=== PATIENT | female | born 1970 | race Caucasian/White ===

== ENCOUNTER → 2016-09-17 | Outpatient (CLI) | payer BC, MEDICARE ==
--- NOTE | 2016-09-19 11:57 | MM ---
Reason for exam: follow-up at short interval from prior study. Last mammogram was performed 6 years and 6 months ago. History: Family history of breast cancer in aunt at age 55. Cyst aspiration of the right breast, June 04, 2004. Ultrasound-guided cyst aspiration of the right breast, May 30, 2004. Benign ultrasound-guided core biopsy of the right breast, May 30, 2004. Cyst aspiration of the right breast. Core biopsy of the right breast. Physical Findings: Nurse did not find any significant physical abnormalities on exam. MG 3D Diag Mammo W/Cad LT CC and MLO view(s) were taken of the left breast. Prior study comparison: March 12, 2016, mammogram, performed at [facility]. March 15, 2013, mammogram, performed at [facility]. March 28, 2010, bilateral digital screening mammogram. January 26, 2007, CAD bilateral diagnostic mammogram. January 24, 2006, CAD bilateral diagnostic mammogram. The breast tissue is almost entirely fat. No suspicious calcifications are seen. Nodular density in the upper outer left breast persists. These results were verbally communicated with the patient on 09/19/16. ASSESSMENT: Incomplete: need additional imaging evaluation, BI-RAD 0 RECOMMENDATION: Ultrasound of the left breast.
--- NOTE | 2016-09-19 11:59 | USB ---
Reason for exam: additional evaluation requested from abnormal screening. History: Family history of breast cancer in aunt at age 55. Cyst aspiration of the right breast, June 04, 2004. Ultrasound-guided cyst aspiration of the right breast, May 30, 2004. Benign ultrasound-guided core biopsy of the right breast, May 30, 2004. Cyst aspiration of the right breast. Core biopsy of the right breast. US Breast LT Left breast ultrasound includes all four quadrants, the retroareolar region and axilla. Finding demonstrates a 0.4 x 0.4 x 0.3cm oval, hypoechoic lesion at 5 o'clock and multiple normal appearing nodes seen at the axilla. These results were verbally communicated with the patient on 09/19/16. ASSESSMENT: Benign, BI-RAD 2 RECOMMENDATION: Routine screening mammogram of both breasts in 6 months. Back on schedule.
== END | disposition home or self-care (01) ==
LOC: RADMAMWWP 14:08
PROVIDERS: ATTEND Surgery
DX: R92.8 Other abnormal and inconclusive findings on diagnostic imaging of breast (principal)
CPT/HCPCS: 76641; G0206; G0279

== ENCOUNTER → 2017-02-01 | Outpatient (CLI) | payer BC, MEDICARE ==
--- NOTE | 2017-02-01 10:43 | MR ---
EXAMINATION TYPE: MR brain wo con DATE OF EXAM: 02/01/2017 COMPARISON: NONE HISTORY: Chronic Tension Headaches T1-weighted sagittal, T2, FLAIR, and diffusion axial, and T2 coronal coronal views of the brain are s ubmitted. There is no evidence of acute ischemia. The ventricles, basal cisterns, and sulci overlying the conv exities are consistent with the patient's age. There is no mass effect. Craniocervical junction maintained. Sella turcica has a normal appearance. No cerebellopontine angle mass. There is mild generalized degenerative change. There are a few scattered areas of less than 5 mm abno rmal signal the white matter which are nonspecific Changes of chronic sinusitis noted. IMPRESSION: 1. No acute intracranial process. 2. There are a few scattered tiny areas of abnormal signal the white matter which are nonspecific can be seen with migraine headaches, hypertension. Demyelinating process or remote microvascular ischemi a not entirely excluded correlate clinically. 3. Changes of chronic sinusitis.
== END | disposition home or self-care (01) ==
LOC: RADMRIMAIN 09:36
PROVIDERS: ATTEND Psychiatry & Neurology Neurology
DX: G43.909 Migraine, unspecified, not intractable, without status migrainosus (principal); I10 Essential (primary) hypertension; R90.82 White matter disease, unspecified; R90.89 Other abnormal findings on diagnostic imaging of central nervous system
CPT/HCPCS: 70551

== ENCOUNTER → 2017-08-19 | Outpatient (CLI) | payer BC, MEDICARE ==
[2017-08-18 13:59] VITALS: BMI 43.5
--- NOTE | 2017-08-19 12:14 | P.CONS ---
History of Present Illness - Reason for Consult Consult date: 08/19/17 - Chief Complaint Lower back and left leg pain - History of Present Illness This is a 47-year-old female with history of 3 back surgeries started in 2008 with 2 laminectomies and into thousand and she had lumbar fusion. The pain did not improve after the surgeries and goes across her lower back and down her left leg to the foot with occasional numbness and tingling however she does not feel weakness in the lower extremities and she also denies any bowel or bladder dysfunction. This pain occasionally wakes her up at night. She denies any weight loss. The patient failed to respond to a spinal cord stimulator trial previously. She had the interventional pain procedures on her back previously but she failed to respond to them and she had them done about 8 years ago. The patient denies using tobacco or marijuana. She is unemployed. She uses a maximum milligrams twice a day and Ambien 10 mg at night. She has been using Marvell 10 mg 4 times a day and MS Contin 30 mg from time to time but she said she rarely needs to use it. Past Medical History Past Medical History: Fibromyalgia, Hypertension, Osteoarthritis (OA), Pneumonia Additional Past Medical History / Comment(s): chronic back pain, incont of urine ,bronchitis, herniated disc,migraines since age 14,IBS. History of Any Multi-Drug Resistant Organisms: None Reported Past Surgical History: Back Surgery, Section, Cholecystectomy, Hysterectomy, Orthopedic Surgery Additional Past Surgical History / Comment(s): lap band SINCE REMOVED, rt breast lumpectomy,rt foot procedure,left knee scope Past Anesthesia/Blood Transfusion Reactions: No Reported Reaction Additional Past Anesthesia/Blood Transfusion Reaction / Comm: CLAUSTERPHOBIA, VERTIGO Smoking Status: Never smoker - Past Family History Father History Unknown: Yes Mother Family Medical History: Hypertension Additional Family Medical History / Comment(s): MATERNAL GRANDMOTHER HAD DM WELL PTS 3 UNCLES Medications and Allergies Home Medications Medication Instructions Recorded Confirmed Type ALPRAZolam [Xanax] 1 mg PO BID 07/18/15 08/19/17 History HYDROcodone/APAP 10-325MG [[place] 2 tab PO BID 07/18/15 08/19/17 History 10-325] Nebivolol [Bystolic] 5 mg PO DAILY@1500 07/18/15 08/19/17 History PARoxetine HCL [Paxil] 30 mg PO DAILY@1500 07/18/15 08/19/17 History Zolpidem [Ambien] 10 mg PO HS 07/18/15 08/19/17 History Chlorthalidone [Hygroton] 25 mg PO DAILY@1500 02/18/17 08/19/17 History Aspirin 81 mg PO DAILY 08/18/17 08/19/17 History Aspirin/Acetaminophen/Caffeine 1 tab PO DAILY PRN 08/19/17 08/19/17 History [Excedrin Extra Strength Caplet] Morphine Sulfate ER [Ms Contin] 30 mg PO BID PRN 08/19/17 08/19/17 History Allergies Allergy/AdvReac Type Severity Reaction Status Date / Time No Known Allergies Allergy Verified 08/19/17 11:37 Physical Exam - Constitutional General appearance: obese - EENT Eyes: PERRLA - Respiratory Respiratory: bilateral: CTA - Cardiovascular Rhythm: regular - Neurologic Neurologic: CNII-XII intact - Psychiatric Psychiatric: A&O x's 3, appropriate affect, intact judgment & insight Neuro exam of the lower extremities showed normal muscle strength bilaterally and symmetrically and normal deep tendon reflexes. Straight leg raising test negative bilaterally. She has significant tenderness around her back surgery scar. There is no sacroiliac joint tenderness on the right side however there is mild tenderness on the left side. She has decreased range of motion of the lumbar spine with more pain with extension than with flexion. Assessment and Plan Plan: This is a 47-year-old female with what seems to be lumbar postlaminectomy pain syndrome and pain that goes down her left leg. The patient failed to respond to aspirin Harvest trial many years ago and right now she has been taking Marvell and MS Contin from time to time to help control her pain. She failed TO respond to physical therapy previously. The patient will continue using Marvell for her pain is described by her primary care physician and I think we can schedule her to have caudal epidural steroid injection under fluoroscopic guidance with lysis of adhesions to see of them helped her back pain. The patient states that she has pain around her tailbone already but she understands that she will be tender for 3 days after this injection. The patient's questions were answered to her satisfaction and also her mother was in the room and her questions were addressed. I thank you for the consultation
== END | disposition home or self-care (01) ==
LOC: PNWHC3 11:25
PROVIDERS: ATTEND Anesthesiology
DX: M96.1 Postlaminectomy syndrome, not elsewhere classified (principal); I10 Essential (primary) hypertension; M19.90 Unspecified osteoarthritis, unspecified site; M79.7 Fibromyalgia; Z79.891 Long term (current) use of opiate analgesic; Z79.899 Other long term (current) drug therapy; Z79.82 Long term (current) use of aspirin; Z98.890 Other specified postprocedural states
CPT/HCPCS: 99211

== ENCOUNTER 2017-09-09 09:49 | Day surgery (SDC) | payer BC, MEDICARE ==
[2017-09-03 14:41] VITALS: BMI 44.5
[~2017-09-09 09:49] MED LIST: LACTATED RINGERS 1,000 ML IV SCH
[2017-09-09 10:23] VITALS: TEMP 98
[2017-09-09] MEDS ORDERED: LACTATED RINGERS 1,000 ML IV ONE (10:24)
[2017-09-09] MEDS ORDERED: LIDOCAINE 1% 20 ML VIAL (10MG/ML) FOR IV START INTRADERMA ONE (10:24)
--- NOTE | 2017-09-09 11:38 | P.PCN ---
Date of Procedure: 09/09/17 Procedure(s) Performed: PREOPERATIVE DIAGNOSIS: Lumbar post laminectomy syndrome. POSTOPERATIVE DIAGNOSIS: Lumbar post laminectomy syndrome. PROCEDURE: 1. Caudal epidural steroid injection under fluoroscopic guidance. 2. Caudal epidurogra ANESTHESIA: Local with 1% lidocaine; 5ml for subcutaneous infiltrations and IV versed 2 mg ,and fentanyl 100 mcg (to was given 2 mg of Versed and 100 g of fentanyl but we found on the the IV was infiltrated and we did place the IV and we gave another 2 mg of Versed and 100 g of fentanyl intravenously ) EBL: None. PROCEDURE INDICATION: The patient with neuropathic pain radiating distally returns for caudal epidural steroid injection. PROCEDURE DESCRIPTION: The patient was seen and identified in the preoperative area. Risks, benefits, complications, and alternatives were discussed with the patient. The patient agreed to proceed with the procedure and signed the consent. IV was started, and vital signs were stable. Patient was taken to the OR and time out was completed. The patient was placed in the prone position on procedure table and a pillow was placed under the abdomen to reduce lumbar lordosis. The lumbosacral area was prepped and draped in the usual sterile fashion. Critical pause was taken. Vital signs were closely monitored during the procedure. Using lateral fluoroscopy the anterior-posterior plates of the sacrum were identified and the skin and deeper tissues corresponding into sacrococcygeal ligament were anesthetized using approximately 3 mL of 1% lidocaine. Then under fluoroscopy, a 3-1/2-inch 20-gauge Tuohy epidural needle was guided through the sacrococcygeal ligament, and into the epidural space. After negative aspiration , a 2 mL of omnipaque-180 contrast dye was injected with excellent epidurogram. Again after negative aspiration for CSF, blood, and with no paresthesias, Depomedrol 80mg , 2ml of 1% preservative free Lidocaine with 6 ml of preservative free normal saline(total of 10ml)solution was injected with washout of epidurogram. Needle was withdrawn intact. Skin was cleansed, and bandage was applied. COMPLICATIONS: None DISPOSITION / PLANS: The patient was placed in a supine position and transferred to the recovery area in a stable condition for observation and was discharged from the recovery room after meeting discharge criteria. Home discharge instructions given to the patient by the staff. The patient was reexamined prior to discharge. The patient will schedule a follow up in the clinic in 2-4 weeks.
[2017-09-09] MEDS ORDERED: IV FLUID CONTINUATION 1,000 ML IV ONE (11:49)
--- NOTE | 2017-09-09 12:10 | FL ---
EXAMINATION TYPE: FL guided pain mgmt statistic DATE OF EXAM: 09/09/2017 COMPARISON: NONE HISTORY: Back pain TECHNIQUE: Fluoroscopy. FINDINGS/IMPRESSION: Fluoroscopic guidance was provided during procedure performed by Dr. Johns. A total of 3 seconds of fluoroscopic time was utilized during the procedure and 2 spot images was ac quired demonstrating localization of the sacrum.
[2017-09-09] MEDS ORDERED: fentaNYL (PF) 50 MCG/ML 2 ML AMP IVP ONE (12:24)
[2017-09-09 13:05] VITALS: BP 106/68; PULSE 68; RESP 20
== END 2017-09-09 13:06 | disposition home or self-care (01) ==
LOC: ORPAIN 09:49
PROVIDERS: ATTEND Specialist
DX: M96.1 Postlaminectomy syndrome, not elsewhere classified (principal); I10 Essential (primary) hypertension; F41.9 Anxiety disorder, unspecified
CPT/HCPCS: 62323; J2250; J1030; J3010; Q9966; 99152

== ENCOUNTER → 2018-08-24 | Outpatient (CLI) | payer BC, MEDICARE ==
[2018-08-24 11:17] LABS: Basophils % (A) 1 %; Eosinophils # (A) 0.2 k/uL (0-0.7); Eosinophils % (A) 4 %; HCT 43.7 % (34.0-46.0); HGB 14.1 gm/dL (11.4-16.0); Lymphocytes # (A) 1.9 k/uL (1.0-4.8); Lymphocytes % (A) 28 %; MCH 27.9 pg (25.0-35.0); MCHC 32.3 g/dL (31.0-37.0); MCV 86.4 fL (80.0-100.0); Mean Platelet Volume 5.9; Monocytes # (A) 0.3 k/uL (0-1.0); Monocytes % (A) 4 %; Neutrophils # (A) 4.4 k/uL (1.3-7.7); Neutrophils % (A) 64 %; Platelet Count 259 k/uL (150-450); RBC 5.06 m/uL (3.80-5.40); RDW 14.1 % (11.5-15.5); WBC 6.9 k/uL (3.8-10.6)
[2018-08-24 11:28] LABS: INR 0.9 (<1.2); Partial Thromboplastin Time 25.5 sec (22.0-30.0); Prothrombin Time 9.9 sec (9.0-12.0)
[2018-08-24 16:24] LABS: Albumin 4.4 g/dL (3.80-4.90); Albumin/Globulin Ratio 1.83 (1.60-3.17); Calcium 9.4 mg/dL (8.7-10.3); Globulin 2.4 g/dL (1.6-3.3); Potassium 3.4 mmol/L (3.5-5.5); Total Bilirubin 0.5 mg/dL (0.3-1.2); Total Protein 6.8 g/dL (6.2-8.2)
== END ==
LOC: LABWHC1 10:06
PROVIDERS: ATTEND Family Medicine
DX: Z01.812 Encounter for preprocedural laboratory examination (principal)
CPT/HCPCS: 36415; 80053; 85025; 85610; 85730; 87070

== ENCOUNTER → 2018-12-02 | Outpatient (CLI) | payer BC, MEDICARE | END | disposition home or self-care (01) | LOC: LABWHC1 10:54 | PROVIDERS: ATTEND Physician Assistant | DX: R07.81 Pleurodynia (principal) | CPT/HCPCS: 36415; 85379 ==

== ENCOUNTER 2019-07-23 10:20 | Observation (INO) | payer BC, MEDICARE ==
--- NOTE | 2019-07-23 11:11 | ED ---
General Adult HPI - General Chief complaint: Chest Pain Stated complaint: chest pain Time Seen by Provider: 07/23/19 10:25 Source: patient, RN notes reviewed, old records reviewed Mode of arrival: ambulatory Limitations: no limitations - History of Present Illness Initial comments: This a 49-year-old female who presents emergency Department complaining of chest pain and some mild shortness of breath. Patient states started a little bit yesterday and more this morning. Patient states she just doesn't feel right. Patient states she also has some mild abdominal discomfort. Patient denies any fever chills or cough. Patient denies headache patient denies numbness or weakness. Patient denies any lightheadedness or dizziness. Patient states she feels very fatigued since yesterday. - Related Data Home Medications Medication Instructions Recorded Confirmed ALPRAZolam [Xanax] 1 mg PO TID PRN 07/18/15 07/23/19 HYDROcodone/APAP 10-325MG [[place] 1 tab PO QID PRN 07/18/15 07/23/19 10-325] Nebivolol [Bystolic] 5 mg PO DAILY@1500 07/18/15 07/23/19 Zolpidem [Ambien] 10 mg PO HS 07/18/15 07/23/19 Chlorthalidone [Hygroton] 25 mg PO DAILY@149902/18/17 07/23/19 Morphine Sulfate ER [Ms Contin] 30 mg PO BID 08/19/17 07/23/19 Aspirin EC [Ecotrin Low Dose] 81 mg PO DAILY@149907/23/19 07/23/19 Cholecalciferol [Vitamin D3 (25 5,000 unit PO DAILY@149907/23/19 07/23/19 Mcg = 1000 Iu)] Magnesium 200 mg PO DAILY@149907/23/19 07/23/19 Multivitamins, Thera [Multivitamin 1 tab PO DAILY@149907/23/19 07/23/19 (formulary)] PARoxetine HCL [Paxil] 40 mg PO DAILY@149907/23/19 07/23/19 Allergies Allergy/AdvReac Type Severity Reaction Status Date / Time No Known Allergies Allergy Verified 07/23/19 11:16 Review of Systems ROS Statement: Those systems with pertinent positive or pertinent negative responses have been documented in the HPI. ROS Other: All systems not noted in ROS Statement are negative. Past Medical History Past Medical History: Fibromyalgia, Hypertension, Neurologic Disorder, Osteoarthritis (OA), Pneumonia Additional Past Medical History / Comment(s): chronic back pain, incont of urine,bronchitis, herniated disc,migraines since age 14,IBS. History of Any Multi-Drug Resistant Organisms: None Reported Past Surgical History: Back Surgery, Section, Cholecystectomy, Hysterectomy, Orthopedic Surgery Additional Past Surgical History / Comment(s): lap band SINCE REMOVED, rt breast lumpectomy Past Anesthesia/Blood Transfusion Reactions: No Reported Reaction Additional Past Anesthesia/Blood Transfusion Reaction / Comment(s): CLAUSTROPHOBIA, VERTIGO Past Psychological History: Anxiety Smoking Status: Never smoker Past Alcohol Use History: Rare Past Drug Use History: None Reported - Past Family History Father History Unknown: Yes Mother Family Medical History: Hypertension Additional Family Medical History / Comment(s): MATERNAL GRANDMOTHER HAD DM WELL PTS 3 UNCLES General Exam - General Exam Comments Initial Comments: GENERAL: Patient is well-developed and well-nourished. Patient is nontoxic and well- hydrated and is in mild to distress. ENT: Neck is soft and supple. No significant lymphadenopathy is noted. Oropharynx is clear. Moist mucous membranes. Neck has full range of motion without eliciting any pain. EYES: The sclera were anicteric and conjunctiva were pink and moist. Extraocular movements were intact and pupils were equal round and reactive to light. Eyelids were unremarkable. PULMONARY: Unlabored respirations. Good breath sounds bilaterally. No audible rales rhonchi or wheezing was noted. CARDIOVASCULAR: There is a regular rate and rhythm without any murmurs gallops or rubs. ABDOMEN: Soft and nontender with normal bowel sounds. No palpable organomegaly was noted. There is no palpable pulsatile mass. SKIN: Skin is clear with no lesions or rashes and otherwise unremarkable. NEUROLOGIC: Patient is alert and oriented x3. Cranial nerves II through XII are grossly intact. Motor and sensory are also intact. Normal speech, volume and content. Symmetrical smile. MUSCULOSKELETAL: Normal extremities with adequate strength and full range of motion. No lower extremity swelling or edema. No calf tenderness. LYMPHATICS: No significant lymphadenopathy is noted PSYCHIATRIC: Normal psychiatric evaluation. Limitations: no limitations Course Vital Signs 07/23/19 07/23/19 10:23 11:30 Temperature 97.5 F L Pulse Rate 74 69 Respiratory 18 20 Rate Blood Pressure 157/82 139/74 O2 Sat by Pulse 98 98 Oximetry Medical Decision Making - Medical Decision Making EKG shows normal sinus rhythm at 66 bpm TX interval is 182 QRS is 86 QT interval 414 QTC is 434 per patient's EKG shows no ST segment elevation or depression. Chest x-ray shows no acute abnormality. Patient states that the chest pain is still there but a little bit improved from arrival. I spoke with Dr. Shirley's group and they agreed to admit the patient admitted the patient wrote admitting orders. - Lab Data Result diagrams: 07/23/19 10:36 07/23/19 10:36 Lab Results 07/23/19 07/23/19 07/23/19 Range/Units 10:36 10:36 10:36 WBC 6.9 (3.8-10.6) k/uL RBC 4.77 (3.80-5.40) m/uL Hgb 13.1 (11.4-16.0) gm/dL Hct 40.4 (34.0-46.0) % MCV 84.6 (80.0-100.0) fL MCH 27.4 (25.0-35.0) pg MCHC 32.4 (31.0-37.0) g/dL RDW 14.8 (11.5-15.5) % Plt Count 236 (150-450) k/uL Neutrophils % 71 % Lymphocytes % 21 % Monocytes % 4 % Eosinophils % 3 % Basophils % 1 % Neutrophils # 4.9 (1.3-7.7) k/uL Lymphocytes # 1.4 (1.0-4.8) k/uL Monocytes # 0.3 (0-1.0) k/uL Eosinophils # 0.2 (0-0.7) k/uL Basophils # 0.0 (0-0.2) k/uL Hypochromasia Slight PT 9.3 (9.0-12.0) sec INR 0.9 (<1.2) APTT 24.0 (22.0-30.0) sec Sodium 140 (137-145) mmol/L Potassium 3.6 (3.5-5.1) mmol/L Chloride 102 (98-107) mmol/L Carbon Dioxide 31 H (22-30) mmol/L Anion Gap 7 mmol/L BUN 14 (7-17) mg/dL Creatinine 0.71 (0.52-1.04) mg/dL Est GFR (CKD-EPI)AfAm >90 (>60 ml/min/1.73 sqM) Est GFR (CKD-EPI)NonAf >90 (>60 ml/min/1.73 sqM) Glucose 125 H (74-99) mg/dL Calcium 8.8 (8.4-10.2) mg/dL Magnesium 2.4 H (1.6-2.3) mg/dL Total Bilirubin 0.4 (0.2-1.3) mg/dL AST 84 H (14-36) U/L ALT 51 H (4-34) U/L Alkaline Phosphatase 150 H (38-126) U/L Troponin I (0.000-0.034) ng/mL Total Protein 7.0 (6.3-8.2) g/dL Albumin 3.9 (3.5-5.0) g/dL Urine Color Urine Appearance (Clear) Urine pH (5.0-8.0) Ur Specific [place] (1.001-1.035) Urine Protein (Negative) Urine Glucose (UA) (Negative) Urine Ketones (Negative) Urine Blood (Negative) Urine Nitrite (Negative) Urine Bilirubin (Negative) Urine Urobilinogen (<2.0) mg/dL Ur Leukocyte Esterase (Negative) 07/23/19 07/23/19 Range/Units 10:36 12:00 WBC (3.8-10.6) k/uL RBC (3.80-5.40) m/uL Hgb (11.4-16.0) gm/dL Hct (34.0-46.0) % MCV (80.0-100.0) fL MCH (25.0-35.0) pg MCHC (31.0-37.0) g/dL RDW (11.5-15.5) % Plt Count (150-450) k/uL Neutrophils % % Lymphocytes % % Monocytes % % Eosinophils % % Basophils % % Neutrophils # (1.3-7.7) k/uL Lymphocytes # (1.0-4.8) k/uL Monocytes # (0-1.0) k/uL Eosinophils # (0-0.7) k/uL Basophils # (0-0.2) k/uL Hypochromasia PT (9.0-12.0) sec INR (<1.2) APTT (22.0-30.0) sec Sodium (137-145) mmol/L Potassium (3.5-5.1) mmol/L Chloride (98-107) mmol/L Carbon Dioxide (22-30) mmol/L Anion Gap mmol/L BUN (7-17) mg/dL Creatinine (0.52-1.04) mg/dL Est GFR (CKD-EPI)AfAm (>60 ml/min/1.73 sqM) Est GFR (CKD-EPI)NonAf (>60 ml/min/1.73 sqM) Glucose (74-99) mg/dL Calcium (8.4-10.2) mg/dL Magnesium (1.6-2.3) mg/dL Total Bilirubin (0.2-1.3) mg/dL AST (14-36) U/L ALT (4-34) U/L Alkaline Phosphatase (38-126) U/L Troponin I <0.012 (0.000-0.034) ng/mL Total Protein (6.3-8.2) g/dL Albumin (3.5-5.0) g/dL Urine Color Yellow Urine Appearance Clear (Clear) Urine pH 5.5 (5.0-8.0) Ur Specific [place] 1.020 (1.001-1.035) Urine Protein Negative (Negative) Urine Glucose (UA) Negative (Negative) Urine Ketones Negative (Negative) Urine Blood Negative (Negative) Urine Nitrite Negative (Negative) Urine Bilirubin Negative (Negative) Urine Urobilinogen 2.0 (<2.0) mg/dL Ur Leukocyte Esterase Negative (Negative) Disposition Clinical Impression: Chest pain Disposition: ADMITTED IP TO THIS HOSP Referrals: Khoa Richard MD [Primary Care Provider] - 1-2 days Time of Disposition: 12:16
--- NOTE | 2019-07-23 11:24 | XR ---
EXAMINATION TYPE: XR chest 2V DATE OF EXAM: 07/23/2019 COMPARISON: 11/10/2015 INDICATION: Chest pain TECHNIQUE: Frontal and lateral views of the chest are obtained. FINDINGS: The heart size is normal. The pulmonary vasculature is normal. The lungs are clear. IMPRESSION: 1. No acute pulmonary process.
[2019-07-23 11:26] LABS: Basophils % (A) 1 %; Eosinophils # (A) 0.2 k/uL (0-0.7); Eosinophils % (A) 3 %; HCT 40.4 % (34.0-46.0); HGB 13.1 gm/dL (11.4-16.0); Hypochromasia Slight; Lymphocytes # (A) 1.4 k/uL (1.0-4.8); Lymphocytes % (A) 21 %; MCH 27.4 pg (25.0-35.0); MCHC 32.4 g/dL (31.0-37.0); MCV 84.6 fL (80.0-100.0); Mean Platelet Volume 7.1; Monocytes # (A) 0.3 k/uL (0-1.0); Monocytes % (A) 4 %; Neutrophils # (A) 4.9 k/uL (1.3-7.7); Neutrophils % (A) 71 %; Platelet Count 236 k/uL (150-450); RBC 4.77 m/uL (3.80-5.40); RDW 14.8 % (11.5-15.5); WBC 6.9 k/uL (3.8-10.6)
[2019-07-23 11:37] LABS: ALT 51 U/L (4-34); AST 84 U/L (14-36); African American GFR (CKD) >90 (>60 ml/min/1.73 sqM); Albumin 3.9 g/dL (3.5-5.0); Alkaline Phosphatase 150 U/L (38-126); Anion Gap 7 mmol/L; Blood Urea Nitrogen 14 mg/dL (7-17); Calcium 8.8 mg/dL (8.4-10.2); Carbon Dioxide 31 mmol/L (22-30); Chloride 102 mmol/L (98-107); Glucose 125 mg/dL (74-99); Magnesium 2.4 mg/dL (1.6-2.3); Non-African American GFR(CKD) >90 (>60 ml/min/1.73 sqM); Potassium 3.6 mmol/L (3.5-5.1); Sodium 140 mmol/L (137-145); Total Bilirubin 0.4 mg/dL (0.2-1.3)
[2019-07-23 11:38] LABS: INR 0.9 (<1.2); Prothrombin Time 9.3 sec (9.0-12.0)
[2019-07-23 12:02] LABS: Appearance,Urine Clear (Clear); Bilirubin,Urine Negative (Negative); Blood,Urine Negative (Negative); Color,Urine Yellow; Glucose,Urine (UA) Negative (Negative); Ketones,Urine Negative (Negative); Leukocyte Esterase,Urine Negative (Negative); Nitrite,Urine Negative (Negative); PH, Urine 5.5 (5.0-8.0); Protein,Urine Negative (Negative)
[2019-07-23] MEDS ORDERED: ASPIRIN 81 MG PO STA (12:15)
[2019-07-23] MEDS ORDERED: NITROGLYCERIN OINT 1 INCH/GM PACKET TOPICAL STA (12:15)
[2019-07-23] MEDS ORDERED: NITROGLYCERIN SL TABS 0.4 MG TAB SUBLINGUAL PRN (12:16)
[2019-07-23] MEDS ORDERED: HYDROcodone/APAP 10-325MG 1 EACH TAB PO ONE (12:50)
[2019-07-23] MEDS ORDERED: HYDROcodone/APAP 10-325MG 1 EACH TAB PO PRN (14:18)
[2019-07-23] MEDS ORDERED: ALPRAZolam 1 MG TAB PO PRN (14:18)
[2019-07-23] MEDS ORDERED: PARoxetine 20 MG TAB PO SCH (15:00)
[2019-07-23] MEDS ORDERED: CHLORTHALIDONE 25 MG TAB PO SCH (15:00)
[2019-07-23] MEDS ORDERED: NEBIVOLOL 5 MG TAB PO SCH (15:00)
[2019-07-23] MEDS ORDERED: CHOLECALCIFEROL 1,000 UNIT TAB PO SCH (15:00)
[2019-07-23] MEDS ORDERED: MAGNESIUM 200 MG PO SCH (15:00)
[2019-07-23] MEDS ORDERED: MULTIVITAMINS, THERA 1 EACH TAB PO SCH (15:00)
--- NOTE | 2019-07-23 15:11 | US ---
EXAMINATION TYPE: US abdomen limited DATE OF EXAM: 07/23/2019 COMPARISON: NONE CLINICAL HISTORY: elevated Liver enzymes. EXAM MEASUREMENTS: Liver Length: 20.1 cm Gallbladder Wall: Surgically absent cm CBD: 0.5 cm Right Kidney: 9.8 x 4.6 x 4.4 cm Pancreas: Obscured by bowel gas Liver: There is increased echogenicity of the hepatic parenchyma with diminished visualization of th e portal triads most commonly relating to hepatic steatosis and limiting evaluation for underlying he patic masses. Gallbladder: Surgically absent Evidence for sonographic Norton's sign: No CBD: wnl Right Kidney: wnl IMPRESSION: 1. Sonographic findings most commonly related to hepatic steatosis. Correlate with liver function nancy t results. 2. Obscuration of the pancreas by overlying bowel gas.
[2019-07-23] MEDS: NITROGLYCERIN OINT 1 INCH/GM PACKET TOPICAL SCH (18:41)
[2019-07-23 18:47] LABS: Hepatitis A Antibody IgM Non-Reactive (Non-Reactive); Hepatitis B Core IgM Non-Reactive (Non-Reactive); Hepatitis B Surface Antigen Non-Reactive (Non-Reactive); Hepatitis C IgG Antibody Non-Reactive (Non-Reactive)
[2019-07-23] MEDS ORDERED: ZOLPIDEM 10 MG TAB PO PRN (21:00)
[2019-07-23] MEDS: MORPHINE SULFATE ER 30 MG TABLET PO SCH (21:43)
--- NOTE | 2019-07-23 23:27 | P.HPIM ---
History of Present Illness H&P Date: 07/23/19 Chief Complaint: Chest Pain Patient is a 49-year-old female with a known history of hypertension, fibromyalgia, chronic back pain, osteoarthritis and history of IBS and anxiet y/depression/PTSD came to ER with the complaints of chest pain. Pain is mainly in the epigastric and retrosternal started in the morning today. Denied any radiation of the pain. Dull pain. Associated with dizziness and nausea and sweating. Patient did not feel very well and came to the hospital. Denied any cough or sputum production. No leg swelling. Patient was recently treated for influenza A infection and finished course of Tamiflu and prednisone on Friday. EKG showed normal sinus rhythm Chest x-ray showed no acute cardio pulmonary process Slightly pasty, ALT and alk phos. Ultrasound abdomen showed hepatic steatosis. Acute Hepatitis panel is non reactive. UA negative. troponin 3 negative. Review of Systems Constitutional: Patient denies any fever or chills . No generalized weakness or weight loss. Abdomen: Patient denied nausea vomiting and diarrhea and abdominal pain. Cardiovascular: Chest pain with mild short of breath no palpitations. Respiratory: patient denied any cough is from production. No shortness of breath Neurologic: Patient denied any numbness or tingling headache. Musculoskeletal: Patient denies any complaints of joint swelling or deformity. Skin: Negative Psychiatric: Negative Endocrine: No heat or cold intolerance. No recent weight gain. Genitourinary: No dysuria or hematuria. All other 14 point ROS negative except the above Past Medical History Past Medical History: Fibromyalgia, Hypertension, Neurologic Disorder, Osteoarthritis (OA), Pneumonia Additional Past Medical History / Comment(s): chronic back pain, incont of urine,bronchitis, herniated disc,migraines since age 14,IBS. complex regional pain syndrome (CRPS) from knee surgery. History of Any Multi-Drug Resistant Organisms: None Reported Past Surgical History: Back Surgery, Section, Cholecystectomy, Hysterectomy, Orthopedic Surgery Additional Past Surgical History / Comment(s): lap band SINCE REMOVED, rt breast lumpectomy, left knee replacement Past Anesthesia/Blood Transfusion Reactions: No Reported Reaction Additional Past Anesthesia/Blood Transfusion Reaction / Comment(s): CLAUSTROPHOBIA, VERTIGO Past Psychological History: Anxiety, Depression, PTSD Smoking Status: Never smoker Past Alcohol Use History: Rare Past Drug Use History: None Reported - Past Family History Father History Unknown: Yes Mother Family Medical History: Hypertension Additional Family Medical History / Comment(s): MATERNAL GRANDMOTHER HAD DM WELL PTS 3 UNCLES Medications and Allergies Home Medications Medication Instructions Recorded Confirmed Type ALPRAZolam [Xanax] 1 mg PO TID PRN 07/18/15 07/23/19 History HYDROcodone/APAP 10-325MG [[place] 1 tab PO QID PRN 07/18/15 07/23/19 History 10-325] Nebivolol [Bystolic] 5 mg PO DAILY@1500 07/18/15 07/23/19 History Zolpidem [Ambien] 10 mg PO HS 07/18/15 07/23/19 History Chlorthalidone [Hygroton] 25 mg PO DAILY@1500 02/18/17 07/23/19 History Morphine Sulfate ER [Ms Contin] 30 mg PO BID 08/19/17 07/23/19 History Aspirin EC [Ecotrin Low Dose] 81 mg PO DAILY@1500 07/23/19 07/23/19 History Cholecalciferol [Vitamin D3 (25 5,000 unit PO DAILY@1500 07/23/19 07/23/19 History Mcg = 1000 Iu)] Magnesium 200 mg PO DAILY@1500 07/23/19 07/23/19 History Multivitamins, Thera [Multivitamin 1 tab PO DAILY@1500 07/23/19 07/23/19 History (formulary)] PARoxetine HCL [Paxil] 40 mg PO DAILY@1500 07/23/19 07/23/19 History Allergies Allergy/AdvReac Type Severity Reaction Status Date / Time No Known Allergies Allergy Verified 07/23/19 11:16 Physical Exam Vitals: Vital Signs Temp Pulse Pulse Resp BP BP Pulse Ox 07/23/19 14:11 93 L 07/23/19 13:12 98.1 F 71 150/89 100 07/23/19 12:30 98.8 F 82 16 132/81 98 07/23/19 11:30 69 20 139/74 98 07/23/19 10:23 97.5 F L 74 18 157/82 98 Intake and Output 07/22/19 07/23/19 07/23/19 22:59 06:59 14:59 Other: # Voids 1 Weight 102.965 kg PHYSICAL EXAMINATION: Patient is lying in the bed comfortably, no acute distress, awake alert and oriented.. HEENT: Normocephalic. Neck is supple. Pupils reactive. Nostrils clear. Oral cavity is moist. Ears reveal no drainage. Neck reveals no JVD, carotid bruits, or thyromegaly. CHEST EXAMINATION: Trachea is central. Symmetrical expansion. Lung pulido clear to auscultation and percussion. CARDIAC: Normal S1, S2 with no gallops. No murmurs ABDOMEN: Soft. Bowel sounds normal. No organomegaly. No abdominal bruits. Extremities: reveal no edema. No clubbing or cyanosis Neurologically awake, alert, oriented x3 with well-coordinated movements. No focal deficits noted Skin: No rash or skin lesions. Psychiatric: Coperative. Nonsuicidal Musculoskeletal: No joint swelling or deformity. Normal range of motion. Results CBC & Chem 7: 07/23/19 10:36 07/23/19 10:36 Labs: Abnormal Lab Results - Last 24 Hours (Table) 07/23/19 Range/Units 10:36 Carbon Dioxide 31 H (22-30) mmol/L Glucose 125 H (74-99) mg/dL Magnesium 2.4 H (1.6-2.3) mg/dL AST 84 H (14-36) U/L ALT 51 H (4-34) U/L Alkaline Phosphatase 150 H (38-126) U/L Thrombosis Risk Factor Assmnt - DVT/VTE Prophylaxis DVT/VTE Prophylaxis: Pharmacologic Prophylaxis ordered - Choose All That Apply Any of the Below Risk Factors Present?: Yes Each Factor Represents 1 point: Age 41-60 years, Obesity (BMI >25) Other Risk Factors: No Other congenital or acquired thrombophilia - If yes, enter type in comment: No Thrombosis Risk Factor Assessment Total Risk Factor Score: 2 Thrombosis Risk Factor Assessment Level: Low Risk Assessment and Plan Assessment: Atypical chest pain. Mainly epigastric pain. Rule out ACS. Recently treated influenza A infection Tamiflu and prednisone Elevated liver enzymes likely due to recent flu Hepatic steatosis Hypertension Fibromyalgia Osteoarthritis History of IBS Complex regional pain syndrome from knee surgery Morbid obesity BMI 35.6 Anxiety/depression/PTSD Plan: Patient will be continued on telemetry monitoring. Serial EKG and troponin 3 negative. Due to elevated liver enzymes ultrasound of ABDOMEN WAS DONE SHOWED HEPATIC STEATOSIS. CONTINUE THE HOME MEDICATIONS AND FOLLOW CLOSELY. CARDIOLOGY WAS CONSULTED. PATIENT WILL BE STARTED ON PEPCID. Further recommendations based on the clinical course. Continue the home pain medications. Time with Patient: Greater than 30
[2019-07-23] MEDS: FAMOTIDINE 20 MG TAB PO SCH (23:57)
[2019-07-24 03:24] LABS: Cholesterol 169 mg/dL (<200); HDL Cholesterol 38 mg/dL (40-60)
[2019-07-24 03:48] LABS: LDL Cholesterol,Calculated 68 mg/dL (0-99); Triglycerides 316 mg/dL (<150)
[2019-07-24] MEDS: NITROGLYCERIN OINT 1 INCH/GM PACKET TOPICAL SCH ×3 (06:27→12:16)
[2019-07-24 07:40] VITALS: RESP 18
--- NOTE | 2019-07-24 08:24 | CONS ---
CONSULTATION Palmira Snyder is a 49-year-old lady who has multiple comorbid conditions in the form of hypertension, fibromyalgia, chronic pain syndrome who has been here in the hospital with an episode of sharp discomfort in the chest. The quality of the discomfort seems very atypical. She is resting comfortably without symptoms at the time of my evaluation. She is also recovering from a recent flu-like illness and apparently, she was diagnosed with flu, placed on Tamiflu. Her liver enzymes are slightly elevated. She also has mostly some vague abdominal discomfort which has also improved. The quality of her chest pain is very atypical. EKG and troponins are unremarkable. She is resting comfortably without symptoms. PAST MEDICAL HISTORY: 1. Fibromyalgia. 2. Hypertension. 3. Osteoarthritis. 4. Previous history of pneumonia. 5. Recent influenza. PAST SURGICAL HISTORY: She is status post section, a lap band surgery, back surgery. She had the lap band placed and taken out. She had a cholecystectomy, hysterectomy. ALLERGIES: None. MEDICATIONS: Xanax, [place], Bystolic, morphine orally, aspirin, and Ambien and she takes [place] 25 mg for hypertension. PHYSICAL EXAMINATION: On examination, her blood pressure is 130/70, pulse rate is 70 per minute, regular. HEENT: Unremarkable. Fundus was not examined by me. NECK: Supple. There is no JVD. I do not hear a carotid bruit. HEART: Reveals S1, S2 heard normally. No rub, murmur or gallop. LUNGS: Clear. ABDOMEN: Soft, nontender. LOWER EXTREMITIES: Reveal normal pulses, no edema. CENTRAL NERVOUS SYSTEM: Normal. EKG revealed sinus mechanism. No acute changes. LABORATORY DATA: Her troponins are unremarkable. IMPRESSION: 1. Atypical chest pain. 2. Hypertension. 3. Recent flu-like illness with recovery with vague body aches which have improved. 4. No evidence to suggest ongoing myocardial ischemia. RECOMMENDATIONS: I am recommending that she can be discharged and I will see her in the office as an outpatient in a week or two and once she is recovered from her flu-like illness which already seems to be resolving, we will perform a stress test as an outpatient. Her clinical presentation does not suggest acute myocardial ischemia. Discussed my thoughts in detail with the patient. I will also discontinue her Nitropaste, place her on a small dose of beta godfrey in the form of metoprolol tartrate 25 mg b.i.d., and will discontinue the Bystolic that she is now taking. She will also be placed on subcu heparin and 81 mg of aspirin. Thank you very much for the consult. ERICKSON / ROSA: [id number] /
[2019-07-24] MEDS: HEPARIN SODIUM,PORCINE 5,000 UNIT/ML 1 ML VIAL SQ SCH ×2 (08:38)
[2019-07-24] MEDS: FAMOTIDINE 20 MG TAB PO SCH (08:38)
[2019-07-24] MEDS ORDERED: METOPROLOL TARTRATE 25 MG TAB PO SCH (09:00)
[2019-07-24] MEDS ORDERED: ASPIRIN 81 MG PO SCH (09:00)
[2019-07-24] MEDS ORDERED: ASPIRIN 325 MG TAB PO SCH (09:00)
[2019-07-24 11:58] VITALS: BP 128/75; PULSE 71; TEMP 98.5
[2019-07-24] MEDS: MORPHINE SULFATE ER 30 MG TABLET PO SCH (12:16)
== END 2019-07-24 12:30 | disposition home or self-care (01) ==
LOC: EC 10:20 → 1SOBS 12:17
PROVIDERS: ADMIT Hospitalist; ATTEND Hospitalist
DX: R07.89 Other chest pain (principal); R10.13 Epigastric pain; M79.7 Fibromyalgia; R79.89 Other specified abnormal findings of blood chemistry; I10 Essential (primary) hypertension; K76.0 Fatty (change of) liver, not elsewhere classified; M19.90 Unspecified osteoarthritis, unspecified site; F41.9 Anxiety disorder, unspecified; F32.9 Major depressive disorder, single episode, unspecified; F43.10 Post-traumatic stress disorder, unspecified; E66.01 Morbid (severe) obesity due to excess calories; Z68.35 Body mass index [BMI] 35.0-35.9, adult; M54.9 Dorsalgia, unspecified; K58.9 Irritable bowel syndrome, unspecified; F40.240 Claustrophobia; G90.50 Complex regional pain syndrome I, unspecified; Z96.652 Presence of left artificial knee joint; Z82.49 Family history of ischemic heart disease and other diseases of the circulatory system; Z90.49 Acquired absence of other specified parts of digestive tract; Z90.710 Acquired absence of both cervix and uterus; Z79.82 Long term (current) use of aspirin; Z79.891 Long term (current) use of opiate analgesic; Z79.899 Other long term (current) drug therapy
CPT/HCPCS: 93005 ×2; 96372; 99285; 36415; 80061; 80053; 80074; 83735; 84484; 85025; 85610; 85730; 81003; 71046; 76705; G0378 ×2; J1644

== ENCOUNTER 2019-09-02 13:39 | Emergency (ER) | payer BC, MEDICARE ==
[2019-09-02] MEDS ORDERED: KETOROLAC 30 MG/ML 1 ML VIAL IVP STA (14:36)
[2019-09-02 14:57] LABS: Basophils % (A) 0 %; Eosinophils # (A) 0.1 k/uL (0-0.7); Eosinophils % (A) 1 %; HCT 36.4 % (34.0-46.0); HGB 12.2 gm/dL (11.4-16.0); Lymphocytes # (A) 1.5 k/uL (1.0-4.8); Lymphocytes % (A) 24 %; MCH 27.1 pg (25.0-35.0); MCHC 33.6 g/dL (31.0-37.0); MCV 80.4 fL (80.0-100.0); Mean Platelet Volume 6.9; Monocytes # (A) 0.5 k/uL (0-1.0); Monocytes % (A) 7 %; Neutrophils # (A) 4.1 k/uL (1.3-7.7); Neutrophils % (A) 64 %; Platelet Count 241 k/uL (150-450); RBC 4.53 m/uL (3.80-5.40); RDW 13.7 % (11.5-15.5); WBC 6.3 k/uL (3.8-10.6)
--- NOTE | 2019-09-02 15:06 | ED ---
Skin/Abscess/FB HPI - General Chief complaint: Skin/Abscess/Foreign Body Stated complaint: skin infection-sent by [facility] Time Seen by Provider: 09/02/19 13:57 Source: patient Mode of arrival: ambulatory - History of Present Illness Initial comments: Patient is a 49-year-old female, with history of hidradenitis suppurative, presenting to the emergency Department with complaints of an abscess in her left inguinal area x 2 weeks. Patient states she first noticed a small reddened area approximately 2 weeks ago. Patient states she gets these very often and did not think anything of it. She states she did squeeze the abscess a few times without significant drainage. Patient states over the course the past 2 weeks the swelling, pain, redness has increased. Patient states that over the past few days she has been having intermittent fevers with this high as 102.1, most r ecent was 100.1. Patient states she did take some Motrin approximately 3 hours prior to arrival. Patient states she went to see her doctor today who recommended take she come to the ER secondary to her increase in symptoms, fever, as well as having a left TKA approximately one year ago. Patient states the wound did open up early this morning and has been draining a large amount of purulent fluid. She states there is also a strong odor from the fluids. She denies any abdominal pain, nausea, vomiting, diarrhea. She has no other complaints at this time. Upon arrival to the ER, her vital signs are stable. - Related Data Home Medications Medication Instructions Recorded Confirmed ALPRAZolam [Xanax] 1 mg PO TID PRN 07/18/15 07/23/19 HYDROcodone/APAP 10-325MG [[place] 1 tab PO QID PRN 07/18/15 07/23/19 10-325] Zolpidem [Ambien] 10 mg PO HS 07/18/15 07/23/19 Chlorthalidone [Hygroton] 25 mg PO DAILY@1500 02/18/17 07/23/19 Morphine Sulfate ER [Ms Contin] 30 mg PO BID 08/19/17 07/23/19 Aspirin EC [Ecotrin Low Dose] 81 mg PO DAILY@1500 07/23/19 07/23/19 Cholecalciferol [Vitamin D3 (25 5,000 unit PO DAILY@1500 02/14/20 02/14/20 Mcg = 1000 Iu)] Magnesium 200 mg PO DAILY@1500 07/23/19 07/23/19 Multivitamins, Thera [Multivitamin 1 tab PO DAILY@1500 07/23/19 07/23/19 (formulary)] PARoxetine HCL [Paxil] 40 mg PO DAILY@1500 07/23/19 07/23/19 Previous Rx's Medication Instructions Recorded Famotidine [Pepcid] 20 mg PO BID 14 Days #28 tab 07/24/19 Metoprolol Tartrate [Lopressor] 25 mg PO BID #60 tab 07/24/19 Cephalexin [Keflex] 500 mg PO Q6HR 7 Days #28 cap 09/02/19 Sulfamethox-Tmp 800-160Mg [Bactrim 1 each PO Q12HR 7 Days #14 tab 09/02/19 Ds] Allergies Allergy/AdvReac Type Severity Reaction Status Date / Time No Known Allergies Allergy Verified 07/23/19 11:16 Review of Systems ROS Statement: Those systems with pertinent positive or pertinent negative responses have been documented in the HPI. ROS Other: All systems not noted in ROS Statement are negative. Past Medical History Past Medical History: Fibromyalgia, Hypertension, Neurologic Disorder, Osteoarthritis (OA), Pneumonia Additional Past Medical History / Comment(s): chronic back pain, incont of urine,bronchitis, herniated disc,migraines since age 14,IBS. complex regional pain syndrome (CRPS) from knee surgery. History of Any Multi-Drug Resistant Organisms: None Reported Past Surgical History: Back Surgery, Section, Cholecystectomy, Hysterectomy, Orthopedic Surgery Additional Past Surgical History / Comment(s): lap band SINCE REMOVED, rt breast lumpectomy, left knee replacement Past Anesthesia/Blood Transfusion Reactions: No Reported Reaction Additional Past Anesthesia/Blood Transfusion Reaction / Comment(s): CLAUSTROPHOBIA, VERTIGO Past Psychological History: Anxiety, Depression, PTSD Smoking Status: Never smoker Past Alcohol Use History: Rare Past Drug Use History: None Reported - Past Family History Father History Unknown: Yes Mother Family Medical History: Hypertension Additional Family Medical History / Comment(s): MATERNAL GRANDMOTHER HAD DM WELL PTS 3 UNCLES General Exam - General Exam Comments Initial Comments: GENERAL: Well-appearing, well-nourished and in no acute distress. HEAD: Atraumatic, normocephalic. EYES: Pupils equal round and reactive to light, extraocular movements intact, sclera anicteric, conjunctiva are normal. ENT: TMs normal, nares patent, oropharynx clear without exudates. Moist mucous membranes. NECK: Normal range of motion, supple without lymphadenopathy or JVD. LUNGS: Breath sounds clear to auscultation bilaterally and equal. No wheezes rales or rhonchi. HEART: Regular rate and rhythm without murmurs, rubs or gallops. ABDOMEN: Soft, nontender, normoactive bowel sounds. No guarding, no rebound. No masses appreciated. : Deferred EXTREMITIES: Normal range of motion, no pitting or edema. No clubbing or cyanosis. NEUROLOGICAL: Normal speech, normal gait. PSYCH: Normal mood, normal affect. SKIN: Warm, Dry, normal turgor,. Patient has a large abscess in the left inguinal area that does have an open center and is draining very minimal amount of fluid. Approximately area is a 5 cm x 3 cm. There is a large surrounding area of induration, erythema. Significant pain with palpation. Course Vital Signs 09/02/19 09/02/19 09/02/19 13:49 16:28 16:42 Temperature 98.0 F 97.8 F Pulse Rate 72 68 65 Respiratory 16 16 17 Rate Blood Pressure 113/62 98/56 123/63 O2 Sat by Pulse 98 98 98 Oximetry Medical Decision Making - Medical Decision Making Patient is a 49-year-old female presenting with a left inguinal abscess 2 weeks. She does have history of hidradenitis suppurative and gets these often. Patient's doctor sent her in secondary to having intermittent fevers over the past few days. Did open up early this morning and has been draining purulent fluid. Patient's vital signs are stable here. On exam patient does have a significant area of induration as well as mild cellulitic changes around the wound. Lab work shows increased inflammatory markers however no leukocytosis. Lactic acid is normal. I did order a CT of the pelvic region with contrast and it shows inflammatory processes the left groin. No well formed drainable abscess seen at this time. No other acute abnormalities. Patient was given pain medicine as well as 1 g of Rocephin. I discussed with patient that we will start her on Keflex and Bactrim for cellulitis. She will continue with warm compresses and will follow up with her PCP in the next 1-3 days. Patient is in agreement with this plan of care. Strict return parameters were discussed with the patient and she verbalized understanding. - Lab Data Result diagrams: 09/02/19 14:45 09/02/19 14:45 Lab Results 09/02/19 09/02/19 09/02/19 Range/Units 14:45 14:45 14:45 WBC 6.3 (3.8-10.6) k/uL RBC 4.53 (3.80-5.40) m/uL Hgb 12.2 (11.4-16.0) gm/dL Hct 36.4 (34.0-46.0) % MCV 80.4 (80.0-100.0) fL MCH 27.1 (25.0-35.0) pg MCHC 33.6 (31.0-37.0) g/dL RDW 13.7 (11.5-15.5) % Plt Count 241 (150-450) k/uL Neutrophils % 64 % Lymphocytes % 24 % Monocytes % 7 % Eosinophils % 1 % Basophils % 0 % Neutrophils # 4.1 (1.3-7.7) k/uL Lymphocytes # 1.5 (1.0-4.8) k/uL Monocytes # 0.5 (0-1.0) k/uL Eosinophils # 0.1 (0-0.7) k/uL Basophils # 0.0 (0-0.2) k/uL ESR 72 H (0-20) mm/hr Sodium 134 L (137-145) mmol/L Potassium 3.0 L (3.5-5.1) mmol/L Chloride 95 L (98-107) mmol/L Carbon Dioxide 32 H (22-30) mmol/L Anion Gap 7 mmol/L BUN 10 (7-17) mg/dL Creatinine 0.95 (0.52-1.04) mg/dL Est GFR (CKD-EPI)AfAm 81 (>60 ml/min/1.73 sqM) Est GFR (CKD-EPI)NonAf 70 (>60 ml/min/1.73 sqM) Glucose 101 H (74-99) mg/dL Plasma Lactic Acid [place] 0.8 (0.7-2.0) mmol/L Calcium 9.0 (8.4-10.2) mg/dL Total Bilirubin 0.5 (0.2-1.3) mg/dL AST 32 (14-36) U/L ALT 17 (4-34) U/L Alkaline Phosphatase 92 (38-126) U/L C-Reactive Protein 159.1 H (<10.0) mg/L Total Protein 7.2 (6.3-8.2) g/dL Albumin 3.8 (3.5-5.0) g/dL Disposition Clinical Impression: Cellulitis of left groin, Abscess of left groin Disposition: HOME SELF-CARE Condition: Stable Instructions (If sedation given, give patient instructions): Abscess (ED) Additional Instructions: Please return to the Emergency Department if symptoms worsen or any other concerns. Continue to use warm compresses on the area. Take both antibiotics as prescribed. Finish both antibiotics. Follow-up with PCP. Prescriptions: Sulfamethox-Tmp 800-160Mg [Bactrim Ds] 1 each PO Q12HR 7 Days #14 tab Cephalexin [Keflex] 500 mg PO Q6HR 7 Days #28 cap Is patient prescribed a controlled substance at d/c from ED?: No Referrals: Khoa Richard MD [Primary Care Provider] - 1-2 days
[2019-09-02 15:12] LABS: Albumin 3.8 g/dL (3.5-5.0); Total Bilirubin 0.5 mg/dL (0.2-1.3); Total Protein 7.2 g/dL (6.3-8.2)
[2019-09-02 15:34] LABS: C Reactive Protein 159.1 mg/L (<10.0)
[2019-09-02 15:55] LABS: Erythrocyte Sedimentation Rate 72 mm/hr (0-20)
--- NOTE | 2019-09-02 16:06 | CT ---
EXAMINATION TYPE: CT pelvis w con DATE OF EXAM: 09/02/2019 COMPARISON: CT abdomen and pelvis July 18, 2015 HISTORY: LT INGUINAL ABSCESS CT DLP: 1422.8 mGycm Automated exposure control for dose reduction was used. CONTRAST: Performed with IV Contrast, patient injected with 100 mL of Isovue 300. FINDINGS: There is ill-defined fluid and fat stranding in the left groin region with prominent adjacent reactiv e subcentimeter lymph nodes extending superiorly. Small focus of air left groin region axial image 50 . No well-formed drainable thick-walled fluid collection or abscess. A tiny thin-walled fluid fluid c ollection is developing measuring roughly 2.1 x 0.8 cm axial image 52. Postsurgical change L4-L5 level redemonstrated. No suspicious bowel dilatation. Remnant normal size o varies. Uterus surgically absent. Scattered pelvic phleboliths. No concerning pelvic fluid collection or adenopathy. IMPRESSION: Left groin inflammatory process is confirmed. Reactive adenopathy is present. Tiny thin-w alled fluid collection noted currently. No well-formed drainable abscess. Focus of air suggests inter abdoul procedure at this level or attempted needle drainage. Correlate clinically.
[2019-09-02] MEDS ORDERED: MORPHINE SULFATE 2 MG/ML SYRINGE IVP ONE (16:17)
[2019-09-02] MEDS ORDERED: cefTRIAXone IN SWFI 1,000 MG/10 ML SYRINGE IVP STA (16:17)
[2019-09-02 16:43] VITALS: BP 123/63; PULSE 65; RESP 17; TEMP 97.8
== END 2019-09-02 16:43 | disposition home or self-care (01) ==
LOC: EC 13:39
DX: L02.214 Cutaneous abscess of groin (principal); L03.314 Cellulitis of groin; M79.7 Fibromyalgia; I10 Essential (primary) hypertension; M19.90 Unspecified osteoarthritis, unspecified site; G57.72 Causalgia of left lower limb; F32.9 Major depressive disorder, single episode, unspecified; F41.9 Anxiety disorder, unspecified; F43.10 Post-traumatic stress disorder, unspecified; Z79.82 Long term (current) use of aspirin; Z79.891 Long term (current) use of opiate analgesic; Z79.899 Other long term (current) drug therapy; Z86.69 Personal history of other diseases of the nervous system and sense organs; Z87.2 Personal history of diseases of the skin and subcutaneous tissue; Z96.652 Presence of left artificial knee joint
CPT/HCPCS: 36415; 80053; 85652; 83605; 85025; 86140; 72193; 99284; 96374; 96375 ×2; J0696; J1885; J2270; Q9967

== ENCOUNTER 2020-12-05 10:58 | Day surgery (SDC) | payer BC, MEDICARE ==
[2020-12-01 09:51] VITALS: BMI 39.1
[2020-12-05 11:26] VITALS: TEMP 97
[2020-12-05] MEDS ORDERED: fentaNYL (PF) 50 MCG/ML 2 ML AMP IVP STA (11:35)
[2020-12-05] MEDS ORDERED: LACTATED RINGERS 1,000 ML IV ONE ×2 (11:43→12:32)
[2020-12-05] MEDS ORDERED: fentaNYL (PF) 50 MCG/ML 2 ML AMP IVP ONE (11:49)
[2020-12-05] MEDS ORDERED: LIDOCAINE 1% INJ 10MG/ML (20 ML MDV) ONE (11:51)
[2020-12-05] MEDS ORDERED: GLYCOPYRROLATE 0.2 MG/ML 2 ML VIAL ONE (11:51)
[2020-12-05] MEDS ORDERED: fentaNYL (PF) 50 MCG/ML 2 ML AMP ONE (11:51)
[2020-12-05] MEDS ORDERED: MIDAZOLAM 2 MG/2 ML VIAL ONE (11:51)
[2020-12-05] MEDS ORDERED: PROPOFOL 10 MG/ML 20 ML VIAL IV ONE (11:51)
--- NOTE | 2020-12-05 12:30 | P.PCN ---
Date of Procedure: 12/05/20 Description of Procedure: Brief history: Patient is a 50-year-old female presenting for outpatient e sophagogastroduodenoscopy and colonoscopy for evaluation of epigastric abdominal pain and screening for malignant neoplasm of the colon. Patient reports intermittent epigastric abdominal pain. Denies any signs or symptoms of bleeding. No family history of colon cancer. Procedure performed: Esophagogastroduodenoscopy with biopsy Colonoscopy with polypectomy Estimated blood loss: Minimal. Preoperative diagnosis: Epigastric abdominal pain, screening for malignant neoplasm of the colon. Anesthesia: MAC Procedure: After informed consent was obtained from the patient was brought into the e ndoscopy unit and IV sedation was administered by anesthesia under continuous monitoring. Initially upper endoscopy was done. The Olympus GF 190 video endoscope was inserted into the mouth and esophagus intubated without any difficulty and was gradually advanced into the stomach and duodenum and carefully examined. The bulb and second part of the duodenum appeared normal, with biopsies taken. The scope was then withdrawn into the stomach adequately insufflated with air and upon careful examination the antrum and body, cardia and fundus appeared normal, except for some moderate punctated erythema in the antrum and body suggestive of moderate gastritis with biopsies of the antrum and body taken. The scope was then withdrawn into the esophagus. The GE junction was located at 36 cm to the incisors. It appeared regular with no erythema erosions or ulcerations. Rest of the esophagus appeared normal, with lower esophageal biopsies taken. Patient tolerated the procedure well. At this time the patient continued to remain sedation. Initial digital rectal examination was normal. Olympus CF 190 video colonoscope was then inserted into the rectum and gradually advanced to the cecum without any difficulty. Careful examination was performed as the scope was gradually being withdrawn. The prep was excellent. The cecum, ascending colon, transverse colon, descending colon, sigmoid colon and rectum appeared normal. 4 polyps measuring in size from 3-7 mm were removed from the transverse colon, ascending colon 2 and descending colon with cold snare polypectomy. Retroflexion was performed in the rectum and no lesions were noted, low-grade internal hemorrhoids noted. Patient tolerated the procedure well. Impression: 1. Moderate gastritis. Biopsies of the duodenum, antrum body and lower esophagus. 2. Cold snare polypectomy of polyps from the transverse colon, ascending colon 2 and descending colon. Internal hemorrhoids. Recommendations: Findings of this examination were discussed with the patient as well as her family. Okay to resume diet. Okay to resume medications. Avoid NSAID medications. Await pathology from biopsies. Follow up in the primary care physician's office as previously scheduled. Recommend repeat colonoscopy in 5 years for history of colon polyps pending pathology from polypectomies.
[2020-12-05 12:52] VITALS: BP 137/87; PULSE 80; RESP 16
== END 2020-12-05 13:06 | disposition home or self-care (01) ==
LOC: ORWHC2ENDO 10:58
PROVIDERS: ATTEND Internal Medicine
DX: Z12.11 Encounter for screening for malignant neoplasm of colon (principal); K29.50 Unspecified chronic gastritis without bleeding; K21.00 Gastro-esophageal reflux disease with esophagitis, without bleeding; D12.2 Benign neoplasm of ascending colon; D12.4 Benign neoplasm of descending colon; D12.3 Benign neoplasm of transverse colon; M94.0 Chondrocostal junction syndrome [Tietze]; F41.9 Anxiety disorder, unspecified; F32.9 Major depressive disorder, single episode, unspecified; M54.2 Cervicalgia; Z88.8 Allergy status to other drugs, medicaments and biological substances; Z79.82 Long term (current) use of aspirin; Z79.899 Other long term (current) drug therapy
CPT/HCPCS: 88305; 45385; 43239; J2250; J2001; J3010; J2704

== ENCOUNTER → 2020-12-15 | Outpatient (CLI) | payer BC, MEDICARE ==
--- NOTE | 2020-12-19 11:05 | MM ---
Reason for exam: screening (asymptomatic). Last mammogram was performed 4 years and 3 months ago. History: Patient is postmenopausal. Family history of breast cancer in aunt at age 55. Cyst aspiration of the right breast, June 04, 2004. Ultrasound-guided cyst aspiration of the right breast, May 30, 2004. Benign ultrasound-guided core biopsy of the right breast, May 30, 2004. Cyst aspiration of the right breast. Core biopsy of the right breast. Took hormonal contraceptives for 15 years. Physical Findings: A clinical breast exam by your physician is recommended on an annual basis and results should be correlated with mammographic findings. MG 3D Screening Mammo W/Cad Bilateral CC and MLO view(s) were taken. Prior study comparison: September 17, 2016, left breast MG 3d diag mammo w/cad LT. March 12, 2016, mammogram, performed at [facility]. There are scattered fibroglandular densities. There is no discrete abnormality. No significant changes when compared with prior studies. ASSESSMENT: Negative, BI-RAD 1 RECOMMENDATION: Routine screening mammogram of both breasts in 1 year.
== END | disposition home or self-care (01) ==
LOC: RADMAMWWP 15:49
PROVIDERS: ATTEND Family Medicine
DX: Z12.31 Encounter for screening mammogram for malignant neoplasm of breast (principal); Z78.0 Asymptomatic menopausal state; Z80.3 Family history of malignant neoplasm of breast
CPT/HCPCS: 77063; 77067

== ENCOUNTER → 2021-09-04 | Outpatient (CLI) | payer BC, MEDICARE | END | disposition home or self-care (01) | LOC: LABWHC1 16:11 | PROVIDERS: ATTEND Orthopaedic Surgery | DX: T84.84XA Pain due to internal orthopedic prosthetic devices, implants and grafts, initial encounter (principal); Z96.652 Presence of left artificial knee joint; Y79.2 Prosthetic and other implants, materials and accessory orthopedic devices associated with adverse incidents | CPT/HCPCS: 36415; 85379; 85652; 86140; 87070; 87075; 87205; 89060 ==

== ENCOUNTER → 2021-09-19 | Outpatient (CLI) | payer BC, MEDICARE ==
--- NOTE | 2021-09-19 16:14 | NM ---
EXAMINATION TYPE: NM bone 3 phase DATE OF EXAM: 09/19/2021 COMPARISON: NONE HISTORY: Pain in left knee Triple phase bone scintigraphy was performed following the injection of 23.3 mCi Tc 99m MDP. Blood f low, Immediate images and 5 hours post injection images acquired. FINDINGS: Blood flow: There is symmetrical blood flow to the bilateral knees. Blood pool: Radiotracer distribution appears normal through the bilateral knees. Static images: There is increased radiotracer accumulation at the distal femur and proximal tibia and within the bilateral knees through multiple images. Increased uptake is also within the patella. Cor relate for osteoarthritic degenerative change. This appears greater on the right than the left. Plain film correlation may be useful. IMPRESSION: Diffuse increased uptake on static images with normal flow and blood pool suggestive for chronic dege nerative type changes present. On the current exam this appears to be greater on the right than the l eft.
== END | disposition home or self-care (01) ==
LOC: RADNMMAIN 07:37
PROVIDERS: ATTEND Orthopaedic Surgery
DX: M25.562 Pain in left knee (principal)
CPT/HCPCS: 78315; A9503

== ENCOUNTER → 2022-12-03 | Outpatient (CLI) | payer BC, MEDICARE ==
--- NOTE | 2022-12-04 08:20 | MM ---
Reason for Exam: Screening (asymptomatic). Last mammogram was performed 1 year(s) and 11 month(s) ago. Patient History: Menarche at age 11. First Full-Term at age 27. Hysterectomy at age 31. Postmenopausal. Patient used Hormonal Contraceptives for 15 years. Core Biopsy on the Right side. Cyst Aspiration on the Right side. 06/04/2004, Cyst Aspiration on the Right side. 05/30/2004, Benign Ultrasound-Guided Core Biopsy on the right side. 05/30/2004, Ultrasound-Guided Cyst Aspiration on the Right side. Maternal aunt had breast cancer, age 55. Risk Values: Luci 5 year model risk: 1.9%. NCI Lifetime model risk: 13.6%. Prior Study Comparison: 03/12/2016 Screening Mammogram, [facility]. 09/17/2016 Left Diagnostic Mammogram, [facility]. 12/15/2020 Bilateral Screening Mammogram, [facility]. Tissue Density: There are scattered fibroglandular densities. Findings: Analyzed By CAD. There is no suspicious group of microcalcifications or new suspicious mass in either breast. Chronic nodularity within both breasts. Overall Assessment: Benign, BI-RAD 2 Management: Screening Mammogram of both breasts in 1 year. A clinical breast exam by your physician is recommended on an annual basis and results should be correlated with mammographic findings. Note on Luci scores and lifetime risk: 1. A Luci score greater than 3% is considered moderate risk. If this is the case, consider specialist referral to assess eligibility for a risk reducing agent. If overall lifetime risk for the development of breast cancer is 20% or higher, the patient may qualify for future screening with alternating mammogram and breast MRI. Electronically signed and approved by: Alek Verma D.O.
== END | disposition home or self-care (01) ==
LOC: RADMAMWWP 16:36
PROVIDERS: ATTEND Family Medicine
DX: Z12.31 Encounter for screening mammogram for malignant neoplasm of breast (principal); Z78.0 Asymptomatic menopausal state; Z80.3 Family history of malignant neoplasm of breast
CPT/HCPCS: 77063; 77067

== ENCOUNTER → 2022-12-26 | Outpatient (CLI) | payer BC, MEDICARE ==
--- NOTE | 2022-12-26 12:36 | XR ---
EXAMINATION TYPE: XR chest 2V DATE OF EXAM: 12/26/2022 COMPARISON: 07/23/2019 HISTORY: Shortness of breath TECHNIQUE: Frontal and lateral views of the chest are obtained. FINDINGS: Scattered senescent parenchymal changes noted. Hyperinflation compatible with COPD. Chronic elevation right hemidiaphragm is stable. No evidence for infiltrate. No evidence for atelectasis. Heart size is stable. Mediastinal structures are stable and grossly unremarkable. No evidence for hilar prominence. Degenerative changes dorsal spine. IMPRESSION: 1. No evidence for acute pulmonary disease.
== END | disposition home or self-care (01) ==
LOC: RADXRMAIN 12:15
PROVIDERS: ATTEND Otolaryngology
DX: R06.02 Shortness of breath (principal); R05.9 Cough, unspecified
CPT/HCPCS: 71046

== ENCOUNTER → 2023-03-27 | Outpatient (CLI) | payer BC, MEDICARE | END | disposition home or self-care (01) | LOC: LABWHC1 15:23 | PROVIDERS: ATTEND Family Medicine | DX: I10 Essential (primary) hypertension (principal) | CPT/HCPCS: 36415; 82088; 83835; 84244; 84443 ==

== ENCOUNTER → 2023-05-06 | Outpatient (CLI) | payer BC, MEDICARE ==
--- NOTE | 2023-05-06 09:56 | US ---
EXAMINATION TYPE: US renal artery duplex complete DATE OF EXAM: 05/06/2023 COMPARISON: NONE CLINICAL INDICATION: Female, 53 years old with history of I10 HTN; Pt states uncontrolled HTN x 1 yea r MEASUREMENTS: RENAL SIZE: Rt Kidney: 10.4 x 4.4 x 4.7 cm Lt Kidney: 11.0 x 4.6 x 5.3 cm RESISTANCE INDEX Right: 0.7 Left: 0.7 RA/AO RATIO (< 3.5 ) Right: 1.2 Left: 1.2 RA VELOCITY ( < 180 cm/s) Right: 130.1 Left: 134.3 No evidence of renal artery stenosis/ Aorta and bilateral kidneys appear unremarkable IMPRESSION: No evidence for renal artery stenosis.
== END | disposition home or self-care (01) ==
LOC: RADUSWWP 07:00
PROVIDERS: ATTEND Family Medicine
DX: I10 Essential (primary) hypertension (principal)
CPT/HCPCS: 93975

== ENCOUNTER → 2024-02-17 | Outpatient (CLI) | payer BC, MEDICARE ==
--- NOTE | 2024-02-18 15:14 | MM ---
Reason for Exam: Screening (asymptomatic). Last mammogram was performed 1 year(s) and 3 month(s) ago. Patient History: Menarche at age 11. First Full-Term at age 27. Hysterectomy at age 31. Postmenopausal. Patient used Hormonal Contraceptives for 15 years. Core Biopsy on the Right side. Cyst Aspiration on the Right side. 06/04/2004, Cyst Aspiration on the Right side. 05/30/2004, Benign Ultrasound-Guided Core Biopsy on the right side. 05/30/2004, Ultrasound-Guided Cyst Aspiration on the Right side. Maternal aunt had breast cancer, age 55. Risk Values: Luci 5 year model risk: 2.0%. NCI Lifetime model risk: 13.3%. Prior Study Comparison: 09/17/2016 Left Diagnostic Mammogram, [facility]. 12/15/2020 Bilateral Screening Mammogram, [facility]. 12/03/2022 Bilateral MG 3D screening mammo w/cad, [facility]. Tissue Density: There are scattered areas of fibroglandular density. Findings: Analyzed By CAD. There is no suspicious group of microcalcifications or new suspicious mass in either breast. Overall Assessment: Negative, BI-RAD 1 Management: Screening Mammogram of both breasts in 1 year. . Patient should continue monthly self-breast exams. A clinical breast exam by your physician is recommended on an annual basis. This exam should not preclude additional follow-up of suspicious palpable abnormalities. Note on Luci scores and lifetime risk: 1. A Luci score greater than 3% is considered moderate risk. If this is the case, consider specialist referral to assess eligibility for a risk reducing agent. 2. If overall lifetime risk for the development of breast cancer is 20% or higher, the patient may qualify for future screening with alternating mammogram and breast MRI. Electronically signed and approved by: Randall Munguia M.D. Radiologis
== END | disposition home or self-care (01) ==
LOC: RADMAMWWP 11:12
PROVIDERS: ATTEND Internal Medicine
DX: Z12.31 Encounter for screening mammogram for malignant neoplasm of breast
CPT/HCPCS: 77063; 77067

== ENCOUNTER → 2024-10-07 | Outpatient (CLI) | payer BC, MEDICARE ==
--- NOTE | 2024-10-07 20:59 | XR ---
EXAMINATION TYPE: XR thoracic spine 3V, XR lumbosacral spine 3 views DATE OF EXAM: 10/07/2024 5:13 PM COMPARISON: None CLINICAL INDICATION: Female, 54 years old with history of M54.50; PHH, pain FINDINGS: Thoracic spine: 12 rib bearing thoracic vertebral bodies. All pedicles are visualized. Cholecystectomy clips. DISH lo wer thoracic spine. Slightly accentuated mid to lower thoracic kyphosis. Mild multilevel degenerative disc disease. Vertebral body heights are preserved and alignment is maintained. Lumbar spine: 5 lumbar type vertebral bodies. Posterior and interbody lumbar fusion L4-L5 along with mature lateral osseous fusion. Hypertrophic facet arthropathy above the fusion at L3-L4. Mild degenerative disc dis ease upper lumbar spine. Degenerative trace grade 1 retrolisthesis L1-L2 and L2-L3. Vertebral body he ights are preserved. IMPRESSION: 1. Thoracic spine: DISH lower thoracic spine. Accentuated mid to lower thoracic kyphosis. Mild multil evel degenerative disc disease. No vertebral compression collapse. 2. Lumbar spine: Status post L4-L5 posterior and interbody lumbar fusion. Hypertrophic facet arthropa thy above the fusion. Mild degenerative disc disease upper lumbar spine along with trace degenerative grade 1 retrolisthesis L1-L2 and L2-L3. [facility], , 10/07/2024 8:57 PM
== END | disposition home or self-care (01) ==
LOC: RADXRMAIN 16:13
PROVIDERS: ATTEND Family Medicine
DX: M48.14 Ankylosing hyperostosis [Forestier], thoracic region (principal); M51.34 Other intervertebral disc degeneration, thoracic region; Z98.1 Arthrodesis status; M47.816 Spondylosis without myelopathy or radiculopathy, lumbar region; M51.360 Other intervertebral disc degeneration, lumbar region with discogenic back pain only; M43.16 Spondylolisthesis, lumbar region
CPT/HCPCS: 72070; 72110